=== PATIENT | female | born 1930 | race American Indian/Alaskan Native ===

== ENCOUNTER 2017-02-04 15:54 | Outpatient (CLI) | payer MEDICARE ==
[2017-02-04 17:02] LABS: Alanine Aminotransferase 9 units/L (7-56); Albumin 3.6 g/dL (3.9-5); Albumin/Globulin Ratio 1.1 %; Alkaline Phosphatase 89 units/L (35-129); Anion Gap 14 mmol/L; Bilirubin,Total 0.3 mg/dL (0.1-1.2); Blood Urea Nitrogen 37 mg/dL (7-17); Calcium 9.7 mg/dL (8.4-10.2); Carbon Dioxide 27 mmol/L (22-30); Chloride 103.8 mmol/L (98-107); Glucose 110 mg/dL (65-100); Potassium 4.9 mmol/L (3.6-5.0); Sodium 140 mmol/L (137-145)
== END 2017-02-04 15:55 | disposition home or self-care (01) ==
LOC: MRI 15:54
PROVIDERS: ATTEND Otolaryngology
DX: H93.11 Tinnitus, right ear (principal); H90.5 Unspecified sensorineural hearing loss
CPT/HCPCS: 36415; 80053

== ENCOUNTER 2017-02-23 21:30 | Emergency (ER) | payer MEDICARE ==
[2017-02-23] MEDS ORDERED: ATROVENT IH ONE (22:20)
[2017-02-23] MEDS ORDERED: PROVENTIL IH ONE (22:20)
--- NOTE | 2017-02-23 22:27 | Emergency Department Report ---
ED Shortness of Breath HPI - General Chief Complaint: Dyspnea/Respdistress Stated Complaint: ANGI Time Seen by Provider: 02/23/17 22:15 Source: patient, family, RN notes reviewed Mode of arrival: Wheelchair Limitations: No Limitations - History of Present Illness Initial Comments: 86-year-old female presents to the emergency department complaining of difficulty breathing. Patient reports the acute onset of difficulty breathing this afternoon at approximately 3 PM. Patient denies chest pain, cough, or fever. She reports shortness of breath is worse with exertion. Patient reports a history of asthma, but states she has not had any problems in many years. Patient initially had an O2 saturation of 88% on room air on arrival. Patient was placed on 2 L nasal cannula prior to my arrival with resulting normal oxygen saturation. She reports feeling slightly with oxygen. There are no other complaints. MD Complaint: shortness of breath -: Sudden, This afternoon Time: 15:00 Pain Scale: 0 Consistency: constant Improves With: nothing Worsens With: exertion Known History Of: asthma Associated Symptoms: denies other symptoms Treatments Prior to Arrival: oxygen - Related Data Home Oxygen Therapy: No Home Medications Medication Instructions Recorded Confirmed Last Taken AtorvaSTATin [Lipitor] 1 tab PO DAILY 02/09/16 02/23/17 02/08/16 Lansoprazole [Prevacid] 30 mg PO DAILY 02/09/16 02/23/17 Unknown NIFEdipine 1 tab PO TID 02/09/16 02/23/17 02/09/16 Ranitidine HCl [Zantac 15mg/ml 75 ml PO BID 02/09/16 02/23/17 Unknown Oral Liq] Vesicare 5 mg PO DAILY 02/09/16 02/23/17 Unknown Previous Rx's Medication Instructions Recorded Last Taken Type Enoxaparin [Lovenox] 70 mg SUB-Q Q12HR #8 syringe 02/12/16 Unknown Rx Warfarin [Coumadin] 5 mg PO QDAY #30 tablet 02/12/16 Unknown Rx Albuterol Sulfate [Ventolin HFA] 2 puff IH Q4H PRN #1 hfa.aer.ad 02/24/17 Unknown Rx predniSONE [Deltasone] 3 tab PO QDAY #15 tab 02/24/17 Unknown Rx Allergies Allergy/AdvReac Type Severity Reaction Status Date / Time No Known Allergies Allergy Verified 02/23/17 21:39 ED Review of Systems ROS: Stated complaint: ANGI Other details as noted in HPI Comment: All other systems reviewed and negative Respiratory: shortness of breath, SOB with exertion ED Past Medical Hx - Past Medical History Previous Medical History?: Yes Hx Hypertension: Yes Hx Asthma: Yes Additional medical history: dvt - Surgical History Past Surgical History?: Yes Hx Appendectomy: Yes Additional Surgical History: knee replacement left knee - Family History Family history: no significant - Social History Smoking Status: Never Smoker Substance Use Type: None - Medications Home Medications: Home Medications Medication Instructions Recorded Confirmed Last Taken Type AtorvaSTATin [Lipitor] 1 tab PO DAILY 02/09/16 02/23/17 02/08/16 History Lansoprazole [Prevacid] 30 mg PO DAILY 02/09/16 02/23/17 Unknown History NIFEdipine 1 tab PO TID 02/09/16 02/23/17 02/09/16 History Ranitidine HCl [Zantac 15mg/ml 75 ml PO BID 02/09/16 02/23/17 Unknown History Oral Liq] Vesicare 5 mg PO DAILY 02/09/16 02/23/17 Unknown History Enoxaparin [Lovenox] 70 mg SUB-Q Q12HR #8 syringe 02/12/16 02/23/17 Unknown Rx Warfarin [Coumadin] 5 mg PO QDAY #30 tablet 02/12/16 02/23/17 Unknown Rx Albuterol Sulfate [Ventolin HFA] 2 puff IH Q4H PRN #1 hfa.aer.ad 02/24/17 Unknown Rx predniSONE [Deltasone] 3 tab PO QDAY #15 tab 02/24/17 Unknown Rx ED Physical Exam - General Limitations: No Limitations General appearance: alert, in distress (mild respiratory distress) - Head Head exam: Present: atraumatic, normocephalic - Eye Eye exam: Present: normal appearance, PERRL, EOMI - ENT ENT exam: Present: normal exam, normal orophraynx, mucous membranes moist - Neck Neck exam: Present: normal inspection, full ROM. Absent: tenderness - Respiratory Respiratory exam: Present: respiratory distress (mild tachypnea), wheezes ( faint bilateral posterior expiratory), decreased breath sounds (bilateral diffuse posterior) - Cardiovascular Cardiovascular Exam: Present: regular rate, normal rhythm, normal heart sounds - GI/Abdominal GI/Abdominal exam: Present: soft, normal bowel sounds. Absent: distended, tenderness - Extremities Exam Extremities exam: Present: normal inspection, full ROM. Absent: tenderness - Back Exam Back exam: Present: normal inspection, full ROM. Absent: tenderness - Neurological Exam Neurological exam: Present: alert, oriented X3. Absent: motor sensory deficit - Skin Skin exam: Present: warm, dry, intact ED Course Vital Signs 02/23/17 02/23/17 02/23/17 21:36 22:39 23:15 Temperature 98.2 F Pulse Rate 101 H 80 Pulse Rate [ 94 H Throughout] Respiratory 24 16 Rate Respiratory 20 Rate [ Throughout] Blood Pressure 171/92 Blood Pressure 167/80 [Left] O2 Sat by Pulse 88 97 Oximetry 02/23/17 02/24/17 02/24/17 23:39 00:10 00:20 Temperature Pulse Rate Pulse Rate [ 81 88 90 Throughout] Respiratory Rate Respiratory 20 24 24 Rate [ Throughout] Blood Pressure Blood Pressure [Left] O2 Sat by Pulse Oximetry ED Medical Decision Making - Lab Data Result diagrams: 02/23/17 22:26 02/23/17 22:26 - Radiology Data Radiology results: image reviewed interpreted by me: Chest x-ray shows no acute cardiopulmonary abnormality. - Medical Decision Making Lab and imaging results reviewed and discussed with patient and family. After multiple nebulizer treatments, the patient reported feeling much better. Patient was able to be weaned off of oxygen and maintained room air oxygen saturation greater than 95%. Patient will be discharged home at this time to follow up with her primary care physician. - Differential Diagnosis asthma exacerbation, CHF, ACS Critical care attestation.: If time is entered above; I have spent that time in minutes in the direct care of this critically ill patient, excluding procedure time. ED Disposition Clinical Impression: Asthma exacerbation Disposition: DISCHARGED TO HOME OR SELFCARE Is pt being admited?: No Condition: Stable Instructions: Asthma (ED) Prescriptions: Albuterol Sulfate [Ventolin HFA] 2 puff IH Q4H PRN #1 hfa.aer.ad PRN Reason: Shortness Of Breath predniSONE [Deltasone] 3 tab PO QDAY #15 tab Referrals: PRIMARY CARE, [Primary Care Provider] - 3-5 Days Time of Disposition: 01:03
[2017-02-23 22:51] LABS: Basophils % (Auto) 0.3 % (0.0-1.8); Eosinophils % (Auto) 3.4 % (0.0-4.3); Hematocrit 40.2 % (30.3-42.9); Hemoglobin 12.8 gm/dl (10.1-14.3); Mean Corpuscular HGB Conc 32 % (30-34); Mean Corpuscular Hemoglobin 28 pg (28-32); Mean Corpuscular Volume 87 fl (79-97); Platelet Count 170 K/mm3 (140-440); Red Cell Distribution Width 16.6 % (13.2-15.2); White Blood Count 4.5 K/mm3 (4.5-11.0)
[2017-02-23 22:59] LABS: Anion Gap 17 mmol/L; Blood Urea Nitrogen 24 mg/dL (7-17); Calcium 9.8 mg/dL (8.4-10.2); Carbon Dioxide 26 mmol/L (22-30); Chloride 106.8 mmol/L (98-107); Glucose 98 mg/dL (65-100); Potassium 4.4 mmol/L (3.6-5.0); Sodium 145 mmol/L (137-145)
[2017-02-23 23:17] VITALS: BP 167/80
[2017-02-23] MEDS ORDERED: DUONEB 0.5 MG-3 MG/3 ML SOLN IH ONE (23:51)
--- NOTE | 2017-02-24 09:04 | XRay Report ---
AP CHEST: HISTORY: Dyspnea AP view of the chest demonstrates a normal mediastinal and cardiac contour with clear lungs and normal bony and soft tissue structures. IMPRESSION: No acute cardiopulmonary process identified.
== END 2017-02-24 01:12 | disposition home or self-care (01) ==
LOC: ED 21:30
DX: J45.901 Unspecified asthma with (acute) exacerbation (principal); I10 Essential (primary) hypertension; Z86.718 Personal history of other venous thrombosis and embolism
CPT/HCPCS: 36415; 71010; 80048; 83880; 84484; 85025; 94640; 96374; 99284; J2930

== ENCOUNTER 2018-10-12 10:04 | Outpatient (CLI) | payer MEDICARE, OTHER ==
[2018-10-12] MEDS ORDERED: XYLOCAINE TOPICAL 4% TP ONE (11:12)
== END 2018-10-12 10:05 | disposition home or self-care (01) ==
LOC: WOUND 10:04
PROVIDERS: ATTEND Surgery
DX: L97.812 Non-pressure chronic ulcer of other part of right lower leg with fat layer exposed (principal); I87.2 Venous insufficiency (chronic) (peripheral); J45.909 Unspecified asthma, uncomplicated; E78.00 Pure hypercholesterolemia, unspecified; I10 Essential (primary) hypertension; Z96.659 Presence of unspecified artificial knee joint
CPT/HCPCS: 99215; G0463

== ENCOUNTER 2018-10-26 09:50 | Outpatient (CLI) | payer MEDICARE, OTHER ==
[2018-10-26] MEDS ORDERED: XYLOCAINE TOPICAL 4% TP ONE (10:07)
[2018-10-26] MEDS ORDERED: AD OINTMENT TP PRN (10:07)
== END 2018-10-26 09:51 | disposition home or self-care (01) ==
LOC: WOUND 09:50
PROVIDERS: ATTEND Surgery
DX: L97.812 Non-pressure chronic ulcer of other part of right lower leg with fat layer exposed (principal); I87.8 Other specified disorders of veins; I10 Essential (primary) hypertension; E78.00 Pure hypercholesterolemia, unspecified; J45.909 Unspecified asthma, uncomplicated; E78.5 Hyperlipidemia, unspecified; Z86.718 Personal history of other venous thrombosis and embolism; Z96.659 Presence of unspecified artificial knee joint
CPT/HCPCS: A6250

== ENCOUNTER 2018-11-09 09:52 | Outpatient (CLI) | payer MEDICARE, OTHER | END 2018-11-09 09:53 | disposition home or self-care (01) | LOC: WOUND 09:52 ==

== ENCOUNTER 2018-11-16 09:58 | Outpatient (CLI) | payer MEDICARE, OTHER | END 2018-11-16 09:59 | disposition home or self-care (01) | LOC: WOUND 09:58 ==

== ENCOUNTER 2018-11-30 09:53 | Outpatient (CLI) | payer MEDICARE, OTHER | END 2018-11-30 09:54 | disposition home or self-care (01) | LOC: WOUND 09:53 ==

== ENCOUNTER 2018-12-07 09:46 | Outpatient (CLI) | payer MEDICARE, OTHER ==
[2018-12-07] MEDS ORDERED: AD OINTMENT TP PRN (10:30)
[2018-12-07] MEDS ORDERED: XYLOCAINE TOPICAL 4% TP ONE (11:20)
== END 2018-12-07 09:47 | disposition home or self-care (01) ==
LOC: WOUND 09:46
PROVIDERS: ATTEND Surgery
DX: I70.232 Atherosclerosis of native arteries of right leg with ulceration of calf (principal); L97.212 Non-pressure chronic ulcer of right calf with fat layer exposed; I87.8 Other specified disorders of veins; I10 Essential (primary) hypertension; J45.909 Unspecified asthma, uncomplicated; E78.5 Hyperlipidemia, unspecified; E78.00 Pure hypercholesterolemia, unspecified; Z96.659 Presence of unspecified artificial knee joint; Z86.718 Personal history of other venous thrombosis and embolism
CPT/HCPCS: A6250

== ENCOUNTER 2018-12-28 09:58 | Outpatient (CLI) | payer MEDICARE, OTHER | END 2018-12-28 09:59 | disposition home or self-care (01) | LOC: WOUND 09:58 ==

== ENCOUNTER 2019-01-04 09:53 | Outpatient (CLI) | payer MEDICARE, OTHER ==
[2019-01-04] MEDS ORDERED: XYLOCAINE TOPICAL 4% TP ONE (11:11)
== END 2019-01-04 09:54 | disposition home or self-care (01) ==
LOC: WOUND 09:53
PROVIDERS: ATTEND Surgery
DX: I70.232 Atherosclerosis of native arteries of right leg with ulceration of calf (principal); L97.212 Non-pressure chronic ulcer of right calf with fat layer exposed; I10 Essential (primary) hypertension; E78.00 Pure hypercholesterolemia, unspecified; E78.5 Hyperlipidemia, unspecified; J45.909 Unspecified asthma, uncomplicated; Z96.659 Presence of unspecified artificial knee joint; Z86.718 Personal history of other venous thrombosis and embolism

== ENCOUNTER 2019-01-25 10:01 | Outpatient (CLI) | payer MEDICARE, OTHER ==
[2019-01-25] MEDS ORDERED: XYLOCAINE TOPICAL 4% TP ONE (10:30)
[2019-01-25] MEDS ORDERED: AD OINTMENT TP PRN (10:30)
== END 2019-01-25 10:02 | disposition home or self-care (01) ==
LOC: WOUND 10:01
PROVIDERS: ATTEND Surgery
DX: I70.232 Atherosclerosis of native arteries of right leg with ulceration of calf (principal); L97.212 Non-pressure chronic ulcer of right calf with fat layer exposed; I87.8 Other specified disorders of veins; I10 Essential (primary) hypertension; E78.00 Pure hypercholesterolemia, unspecified; J45.909 Unspecified asthma, uncomplicated; E78.5 Hyperlipidemia, unspecified; Z86.718 Personal history of other venous thrombosis and embolism; Z96.659 Presence of unspecified artificial knee joint
CPT/HCPCS: A6250

== ENCOUNTER 2019-02-22 09:29 | Outpatient (CLI) | payer MEDICARE, OTHER ==
[2019-02-22] MEDS ORDERED: XYLOCAINE TOPICAL 4% TP ONE (10:00)
== END 2019-02-22 09:30 | disposition home or self-care (01) ==
LOC: WOUND 09:29
PROVIDERS: ATTEND Surgery
DX: I70.232 Atherosclerosis of native arteries of right leg with ulceration of calf (principal); L97.812 Non-pressure chronic ulcer of other part of right lower leg with fat layer exposed; I87.8 Other specified disorders of veins; I10 Essential (primary) hypertension; J45.909 Unspecified asthma, uncomplicated; E78.5 Hyperlipidemia, unspecified; E78.00 Pure hypercholesterolemia, unspecified; Z86.718 Personal history of other venous thrombosis and embolism; Z96.60 Presence of unspecified orthopedic joint implant

== ENCOUNTER 2019-03-01 09:33 | Outpatient (CLI) | payer MEDICARE, OTHER ==
[2019-03-01] MEDS ORDERED: AD OINTMENT TP SCH (10:00)
[2019-03-01] MEDS ORDERED: XYLOCAINE TOPICAL 4% TP ONE (10:00)
== END 2019-03-01 09:34 | disposition home or self-care (01) ==
LOC: WOUND 09:33
PROVIDERS: ATTEND Surgery
DX: I70.232 Atherosclerosis of native arteries of right leg with ulceration of calf (principal); L97.212 Non-pressure chronic ulcer of right calf with fat layer exposed; I87.8 Other specified disorders of veins; I10 Essential (primary) hypertension; J45.909 Unspecified asthma, uncomplicated; E78.5 Hyperlipidemia, unspecified; E78.00 Pure hypercholesterolemia, unspecified; Z86.718 Personal history of other venous thrombosis and embolism; Z96.60 Presence of unspecified orthopedic joint implant
CPT/HCPCS: A6250

== ENCOUNTER 2019-03-29 09:36 | Outpatient (CLI) | payer MEDICARE, OTHER ==
[2019-03-29] MEDS ORDERED: XYLOCAINE TOPICAL 4% TP ONE (10:00)
[2019-03-29] MEDS ORDERED: AD OINTMENT TP PRN (10:00)
[2019-03-29] MEDS ORDERED: SILVER NITRATE TP ONE (10:00)
== END 2019-03-29 09:37 | disposition home or self-care (01) ==
LOC: WOUND 09:36
PROVIDERS: ATTEND Surgery
DX: I70.232 Atherosclerosis of native arteries of right leg with ulceration of calf (principal); L97.212 Non-pressure chronic ulcer of right calf with fat layer exposed; I87.8 Other specified disorders of veins; I10 Essential (primary) hypertension; E78.00 Pure hypercholesterolemia, unspecified; J45.909 Unspecified asthma, uncomplicated; Z86.718 Personal history of other venous thrombosis and embolism; Z96.659 Presence of unspecified artificial knee joint
CPT/HCPCS: A6250

== ENCOUNTER 2019-04-07 09:35 | Outpatient (CLI) | payer MEDICARE, OTHER | END 2019-04-07 09:36 | disposition home or self-care (01) | LOC: WOUND 09:35 | PROVIDERS: ATTEND Surgery | DX: I70.232 Atherosclerosis of native arteries of right leg with ulceration of calf (principal); L97.812 Non-pressure chronic ulcer of other part of right lower leg with fat layer exposed; I87.8 Other specified disorders of veins; I10 Essential (primary) hypertension; E78.00 Pure hypercholesterolemia, unspecified; J45.909 Unspecified asthma, uncomplicated; Z86.718 Personal history of other venous thrombosis and embolism; Z96.659 Presence of unspecified artificial knee joint ==

== ENCOUNTER 2019-04-19 09:24 | Outpatient (CLI) | payer MEDICARE, OTHER ==
[2019-04-19] MEDS ORDERED: XYLOCAINE TOPICAL 4% TP ONE (10:00)
== END 2019-04-19 09:25 | disposition home or self-care (01) ==
LOC: WOUND 09:24
PROVIDERS: ATTEND Surgery
DX: I70.232 Atherosclerosis of native arteries of right leg with ulceration of calf (principal); L97.812 Non-pressure chronic ulcer of other part of right lower leg with fat layer exposed; I87.8 Other specified disorders of veins; I10 Essential (primary) hypertension; E78.00 Pure hypercholesterolemia, unspecified; J45.909 Unspecified asthma, uncomplicated; Z86.718 Personal history of other venous thrombosis and embolism; Z96.659 Presence of unspecified artificial knee joint

== ENCOUNTER 2019-05-17 09:25 | Outpatient (CLI) | payer MEDICARE, OTHER ==
[2019-05-17] MEDS ORDERED: XYLOCAINE TOPICAL 4% TP ONE (10:30)
[2019-05-17] MEDS ORDERED: AD OINTMENT TP PRN (10:30)
== END 2019-05-17 09:26 | disposition home or self-care (01) ==
LOC: WOUND 09:25
PROVIDERS: ATTEND Surgery
DX: L97.812 Non-pressure chronic ulcer of other part of right lower leg with fat layer exposed (principal); I87.2 Venous insufficiency (chronic) (peripheral); E78.00 Pure hypercholesterolemia, unspecified; J45.909 Unspecified asthma, uncomplicated; I10 Essential (primary) hypertension; Z96.659 Presence of unspecified artificial knee joint
CPT/HCPCS: A6250

== ENCOUNTER 2019-05-20 11:39 | Outpatient (CLI) | payer MEDICARE, OTHER | END 2019-05-20 11:40 | disposition home or self-care (01) | LOC: WOUND 11:39 | PROVIDERS: ATTEND Surgery | DX: I70.232 Atherosclerosis of native arteries of right leg with ulceration of calf (principal); L97.812 Non-pressure chronic ulcer of other part of right lower leg with fat layer exposed; I87.8 Other specified disorders of veins; I10 Essential (primary) hypertension; E78.00 Pure hypercholesterolemia, unspecified; J45.909 Unspecified asthma, uncomplicated; Z86.718 Personal history of other venous thrombosis and embolism; Z96.659 Presence of unspecified artificial knee joint | CPT/HCPCS: 29581 ==

== ENCOUNTER 2019-05-24 09:31 | Outpatient (CLI) | payer MEDICARE, OTHER ==
[2019-05-24] MEDS ORDERED: AD OINTMENT TP SCH (11:00)
[2019-05-24] MEDS ORDERED: XYLOCAINE TOPICAL 4% TP ONE (11:04)
== END 2019-05-24 09:32 | disposition home or self-care (01) ==
LOC: WOUND 09:31
PROVIDERS: ATTEND Surgery
DX: L97.812 Non-pressure chronic ulcer of other part of right lower leg with fat layer exposed (principal); I87.2 Venous insufficiency (chronic) (peripheral); E78.00 Pure hypercholesterolemia, unspecified; I10 Essential (primary) hypertension; J45.909 Unspecified asthma, uncomplicated; Z96.659 Presence of unspecified artificial knee joint
CPT/HCPCS: A6250

== ENCOUNTER 2019-05-31 09:35 | Outpatient (CLI) | payer MEDICARE, OTHER ==
[2019-05-31] MEDS ORDERED: XYLOCAINE TOPICAL 4% TP ONE (10:00)
[2019-05-31] MEDS ORDERED: AD OINTMENT TP PRN (10:30)
== END 2019-05-31 09:36 | disposition home or self-care (01) ==
LOC: WOUND 09:35
PROVIDERS: ATTEND Surgery
DX: L97.812 Non-pressure chronic ulcer of other part of right lower leg with fat layer exposed (principal); I87.2 Venous insufficiency (chronic) (peripheral); E78.00 Pure hypercholesterolemia, unspecified; J45.909 Unspecified asthma, uncomplicated; I10 Essential (primary) hypertension; Z96.659 Presence of unspecified artificial knee joint
CPT/HCPCS: A6250

== ENCOUNTER 2019-06-07 09:26 | Outpatient (CLI) | payer MEDICARE, OTHER | END 2019-06-07 09:27 | disposition home or self-care (01) | LOC: WOUND 09:26 | PROVIDERS: ATTEND Surgery | DX: L97.812 Non-pressure chronic ulcer of other part of right lower leg with fat layer exposed (principal); I87.2 Venous insufficiency (chronic) (peripheral); E78.00 Pure hypercholesterolemia, unspecified; I10 Essential (primary) hypertension; J45.909 Unspecified asthma, uncomplicated; E78.5 Hyperlipidemia, unspecified; Z96.659 Presence of unspecified artificial knee joint; Z86.718 Personal history of other venous thrombosis and embolism ==

== ENCOUNTER 2019-06-14 09:20 | Outpatient (CLI) | payer MEDICARE, OTHER ==
[2019-06-14] MEDS ORDERED: XYLOCAINE TOPICAL 4% TP ONE (10:00)
== END 2019-06-14 09:21 | disposition home or self-care (01) ==
LOC: WOUND 09:20
PROVIDERS: ATTEND Surgery
DX: L97.812 Non-pressure chronic ulcer of other part of right lower leg with fat layer exposed (principal); I87.2 Venous insufficiency (chronic) (peripheral); E78.00 Pure hypercholesterolemia, unspecified; I10 Essential (primary) hypertension; J45.909 Unspecified asthma, uncomplicated; E78.5 Hyperlipidemia, unspecified; Z96.659 Presence of unspecified artificial knee joint; Z86.718 Personal history of other venous thrombosis and embolism

== ENCOUNTER 2019-11-11 14:23 | Emergency (ER) | payer MEDICARE, OTHER ==
--- NOTE | 2019-11-11 14:35 | Emergency Department Report ---
Blank Doc - Documentation Documentation: 89-year-old female that presents with open wound that is drainage and swelling. This initial assessment/diagnostic orders/clinical plan/treatment(s) is/are subject to change based on patient's health status, clinical progression and re- assessment by fellow clinical providers in the ED. Further treatment and workup at subsequent clinical providers discretion. Patient/guardians urged not to elope from the ED as their condition may be serious if not clinically assessed and managed. Initial orders include: 1- Patient sent to [facility] for further evaluation and treatment
[2019-11-11 15:10] LABS: Basophils % (Auto) 0.3 % (0.0-1.8); Eosinophils # (Auto) 0.1 K/mm3 (0.0-0.4); Eosinophils % (Auto) 1.4 % (0.0-4.3); Hematocrit 36.8 % (30.3-42.9); Hemoglobin 11.9 gm/dl (10.1-14.3); Lymphocytes % (Auto) 17.2 % (13.4-35.0); Mean Corpuscular HGB Conc 32 % (30-34); Mean Corpuscular Volume 85 fl (79-97); Monocytes # (Auto) 0.6 K/mm3 (0.0-0.8); Monocytes % (Auto) 9.9 % (0.0-7.3); Platelet Count 247 K/mm3 (140-440); Red Blood Count 4.35 M/mm3 (3.65-5.03); Red Cell Distribution Width 15.8 % (13.2-15.2)
[2019-11-11 15:26] LABS: Calcium 10.1 mg/dL (8.4-10.2)
--- NOTE | 2019-11-11 18:48 | Emergency Department Report ---
- General Chief Complaint: Extremity Injury, Lower Stated Complaint: RT LEG WOUND Time Seen by Provider: 11/11/19 14:33 Source: patient Mode of arrival: Ambulatory Limitations: No Limitations - History of Present Illness Initial Comments: 89-year-old -Portuguese female presents to the emergency room complaining of pain to the left lower lid due to a wound. Patient reports that she's had this wound on her leg for at least 1 year. Patient reports she's been following up at the Wound Care clinic. Patient states that she went to the wound care clinic and they treated her and now she is having pain. Patient reports that she uses takes tramadol but last dose was early this morning. Patient also complains of itchy red rash to thighs for several days. Patient cannot recall the offending agent. Patient does have a past medical history of hypertension and peripheral vascular disease. Patient's primary care doctor is Dr. Nguyen. Onset/Timin -: year(s) Extremity Location: Left: Lower Leg Patient Tetanus UTD: Yes Associated Symptoms: pain - Related Data Home Medications Medication Instructions Recorded Confirmed Last Taken AtorvaSTATin [Lipitor] 1 tab PO DAILY 02/09/16 02/23/17 02/08/16 Lansoprazole [Prevacid] 30 mg PO DAILY 02/09/16 02/23/17 Unknown NIFEdipine 1 tab PO TID 02/09/16 02/23/17 02/09/16 Vesicare 5 mg PO DAILY 02/09/16 02/23/17 Unknown raNITIdine HCl [Zantac 15mg/ml 75 ml PO BID 02/09/16 02/23/17 Unknown Oral Liq] Previous Rx's Medication Instructions Recorded Last Taken Type Enoxaparin 70 mg SUB-Q Q12HR #8 syringe 02/12/16 Unknown Rx Warfarin [Coumadin] 5 mg PO QDAY #30 tablet 02/12/16 Unknown Rx Albuterol Sulfate [Ventolin HFA] 2 puff IH Q4H PRN #1 hfa.aer.ad 02/24/17 Unknown Rx predniSONE [Deltasone] 3 tab PO QDAY #15 tab 02/24/17 Unknown Rx Albuterol INH(or & Nicu Only) 2 puff IH Q4HR PRN #1 inhalation 08/25/18 Unknown Rx [ProAir HFA Inhaler] predniSONE [Deltasone] 20 mg PO QDAY #15 tab 08/25/18 Unknown Rx Triamcinolone 0.1% [Kenalog 0.1% 1 applic TP TID #1 tube 11/11/19 Unknown Rx CREAM] Allergies Allergy/AdvReac Type Severity Reaction Status Date / Time No Known Allergies Allergy Verified 02/23/17 21:39 ED Review of Systems ROS: Stated complaint: RT LEG WOUND Other details as noted in HPI Comment: All other systems reviewed and negative ED Past Medical Hx - Past Medical History Hx Hypertension: Yes Hx Asthma: Yes Additional medical history: dvt - Surgical History Hx Appendectomy: Yes Additional Surgical History: knee replacement left knee - Social History Smoking Status: Never Smoker Substance Use Type: None - Medications Home Medications: Home Medications Medication Instructions Recorded Confirmed Last Taken Type AtorvaSTATin [Lipitor] 1 tab PO DAILY 02/09/16 02/23/17 02/08/16 History Lansoprazole [Prevacid] 30 mg PO DAILY 02/09/16 02/23/17 Unknown History NIFEdipine 1 tab PO TID 02/09/16 02/23/17 02/09/16 History Vesicare 5 mg PO DAILY 02/09/16 02/23/17 Unknown History raNITIdine HCl [Zantac 15mg/ml 75 ml PO BID 02/09/16 02/23/17 Unknown History Oral Liq] Enoxaparin 70 mg SUB-Q Q12HR #8 syringe 02/12/16 02/23/17 Unknown Rx Warfarin [Coumadin] 5 mg PO QDAY #30 tablet 02/12/16 02/23/17 Unknown Rx Albuterol Sulfate [Ventolin HFA] 2 puff IH Q4H PRN #1 hfa.aer.ad 02/24/17 Unknown Rx predniSONE [Deltasone] 3 tab PO QDAY #15 tab 02/24/17 Unknown Rx Albuterol INH(or & Nicu Only) 2 puff IH Q4HR PRN #1 inhalation 08/25/18 Unknown Rx [ProAir HFA Inhaler] predniSONE [Deltasone] 20 mg PO QDAY #15 tab 08/25/18 Unknown Rx Triamcinolone 0.1% [Kenalog 0.1% 1 applic TP TID #1 tube 11/11/19 Unknown Rx CREAM] ED Physical Exam - General Limitations: No Limitations General appearance: alert, in no apparent distress - Head Head exam: Present: atraumatic, normocephalic - Eye Eye exam: Present: normal appearance - ENT ENT exam: Present: mucous membranes moist - Neurological Exam Neurological exam: Present: alert, oriented X3 - Psychiatric Psychiatric exam: Present: normal affect, normal mood - Expanded Skin Exam Expanded Type of lesion: Present: rash, other (wound right lower leg : Hyperpigmented thick scaly skin with an area distal that is hypopigmented open wound with no purulent discharge or foul odor. Patient has clear discharge from wound) Distribution of rash: RLE, LLE Description of rash: Present: erythematous, papular. Absent: swelling ED Course Vital Signs 11/11/19 14:34 Temperature 98 F Pulse Rate 90 Respiratory 16 Rate Blood Pressure 109/65 O2 Sat by Pulse 97 Oximetry ED Medical Decision Making - Lab Data Result diagrams: 11/11/19 14:47 11/11/19 14:47 - Medical Decision Making 89-year-old -Portuguese female presents to the emergency room complaining of pain to the left lower lid due to a wound. Patient reports that she's had this wound on her leg for at least 1 year. Patient reports she's been following up at the Wound Care clinic. Patient states that she went to the wound care clinic and they treated her and now she is having pain. Patient reports that she uses takes tramadol but last dose was early this morning. Patient does have a past medical history of hypertension and peripheral vascular disease. Patient's primary care doctor is Dr. Nguyen. And has 2 different complaints. #1 patient has a chronic peripheral vascular disease secondary wound that appears noninfectious. Discussed the patient will refer her to another wound care clinic and she is not please with the Wound Care clinic she is currently going to. I also discussed the patient that when the provider manipulates her wound such as cleaning her debridement that she is going to have some pain and that she needs to take her pain medication. Liliana salazar's wound was cleaned and redressed by nursing staff. In complaint patient has a rash that appears to be a contact dermatitis. Patient was placed on triamcinolone cream to only apply to her rash on her upper thighs. Critical care attestation.: If time is entered above; I have spent that time in minutes in the direct care of this critically ill patient, excluding procedure time. ED Disposition Clinical Impression: Contact dermatitis Qualifiers: Contact dermatitis type: unspecified Contact dermatitis trigger: unspecified trigger Qualified Code(s): L25.9 - Unspecified contact dermatitis, unspecified cause Open leg wound Qualifiers: Encounter type: subsequent encounter Laterality: right Qualified Code(s): S81.801D - Unspecified open wound, right lower leg, subsequent encounter Disposition: DC-01 TO HOME OR SELFCARE Is pt being admited?: No Does the pt Need Aspirin: No Condition: Stable Instructions: Contact Dermatitis (ED) Additional Instructions: Take pain medication as prescribed. Primary care provider. Follow up at the wound care clinic and have listed [facility] in [place]. Use cream on your upper thigh where rash is located. Do not place on the wound. Prescriptions: Triamcinolone 0.1% [Kenalog 0.1% CREAM] 1 applic TP TID #1 tube Referrals: PRIMARY CARE, [Primary Care Provider] - 3-5 Days Wound[facility]Care Clinic [Other] - 3-5 Days
[2019-11-11 19:11] VITALS: BP 128/81
== END 2019-11-11 19:12 | disposition home or self-care (01) ==
LOC: ED 14:23
DX: S81.802D Unspecified open wound, left lower leg, subsequent encounter (principal); L25.9 Unspecified contact dermatitis, unspecified cause; I10 Essential (primary) hypertension; J45.909 Unspecified asthma, uncomplicated; Z79.899 Other long term (current) drug therapy; X58.XXXD Exposure to other specified factors, subsequent encounter
CPT/HCPCS: 36415; 80048; 85025

== ENCOUNTER 2019-11-22 08:52 | Emergency (ER) | payer MEDICARE, OTHER ==
--- NOTE | 2019-11-22 09:32 | Emergency Department Report ---
ED Extremity Problem HPI - General Chief complaint: Wound/Laceration Stated complaint: OPEN WOUND RIGHT FOOT Time Seen by Provider: 11/22/19 09:20 Source: patient, EMS Mode of arrival: Stretcher Limitations: Physical Limitation - History of Present Illness Initial comments: Patient is a 89 years old female with history of hypertension, asthma and periph eral vascular disease. Patient also had a chronic right leg wound for approximately one year. Patient presented to the ER stating that since last night her right leg is hurting her more. Patient stated that she is unable to sleep last night because of the pain. Patient stated that she is taking tramadol but is not helping. Patient denied any recent injury or fall. Patient also denied any fever or chills. No chest pain or shortness of breath or abdominal pain. MD Complaint: extremity pain, extremity swelling - Related Data Home Medications Medication Instructions Recorded Confirmed Last Taken AtorvaSTATin [Lipitor] 1 tab PO DAILY 02/09/16 02/23/17 02/08/16 Lansoprazole [Prevacid] 30 mg PO DAILY 02/09/16 02/23/17 Unknown NIFEdipine 1 tab PO TID 02/09/16 02/23/17 02/09/16 Vesicare 5 mg PO DAILY 02/09/16 02/23/17 Unknown raNITIdine HCl [Zantac 15mg/ml 75 ml PO BID 02/09/16 02/23/17 Unknown Oral Liq] Previous Rx's Medication Instructions Recorded Last Taken Type Enoxaparin 70 mg SUB-Q Q12HR #8 syringe 02/12/16 Unknown Rx Warfarin [Coumadin] 5 mg PO QDAY #30 tablet 02/12/16 Unknown Rx Albuterol Sulfate [Ventolin HFA] 2 puff IH Q4H PRN #1 hfa.aer.ad 02/24/17 Unknow n Rx predniSONE [Deltasone] 3 tab PO QDAY #15 tab 02/24/17 Unknown Rx Albuterol INH(or & Nicu Only) 2 puff IH Q4HR PRN #1 inhalation 08/25/18 Unknown Rx [ProAir HFA Inhaler] predniSONE [Deltasone] 20 mg PO QDAY #15 tab 08/25/18 Unknown Rx Triamcinolone 0.1% [Kenalog 0.1% 1 applic TP TID #1 tube 11/11/19 Unknown Rx CREAM] Allergies Allergy/AdvReac Type Severity Reaction Status Date / Time No Known Allergies Allergy Verified 02/23/17 21:39 ED Review of Systems ROS: Stated complaint: OPEN WOUND RIGHT FOOT Other details as noted in HPI Comment: All other systems reviewed and negative Constitutional: denies: chills, fever Respiratory: denies: cough, shortness of breath, SOB with exertion Cardiovascular: denies: chest pain, palpitations Gastrointestinal: denies: abdominal pain, nausea, vomiting Musculoskeletal: denies: back pain Neurological: denies: headache, weakness, numbness, paresthesias, confusion, abnormal gait ED Past Medical Hx - Past Medical History Hx Hypertension: Yes Hx Asthma: Yes Additional medical history: dvt - Surgical History Hx Appendectomy: Yes Additional Surgical History: knee replacement left knee - Social History Smoking Status: Never Smoker Substance Use Type: None - Medications Home Medications: Home Medications Medication Instructions Recorded Confirmed Last Taken Type AtorvaSTATin [Lipitor] 1 tab PO DAILY 02/09/16 02/23/17 02/08/16 History Lansoprazole [Prevacid] 30 mg PO DAILY 02/09/16 02/23/17 Unknown History NIFEdipine 1 tab PO TID 02/09/16 02/23/17 02/09/16 History Vesicare 5 mg PO DAILY 02/09/16 02/23/17 Unknown History raNITIdine HCl [Zantac 15mg/ml 75 ml PO BID 02/09/16 02/23/17 Unknown History Oral Liq] Enoxaparin 70 mg SUB-Q Q12HR #8 syringe 02/12/16 02/23/17 Unknown Rx Warfarin [Coumadin] 5 mg PO QDAY #30 tablet 02/12/16 02/23/17 Unknown Rx Albuterol Sulfate [Ventolin HFA] 2 puff IH Q4H PRN #1 hfa.aer.ad 02/24/17 Unknown Rx predniSONE [Deltasone] 3 tab PO QDAY #15 tab 02/24/17 Unknown Rx Albuterol INH(or & Nicu Only) 2 puff IH Q4HR PRN #1 inhalation 08/25/18 Unknown Rx [ProAir HFA Inhaler] predniSONE [Deltasone] 20 mg PO QDAY #15 tab 08/25/18 Unknown Rx Triamcinolone 0.1% [Kenalog 0.1% 1 applic TP TID #1 tube 11/11/19 Unknown Rx CREAM] ED Physical Exam - General Limitations: Physical Limitation General appearance: alert, in no apparent distress - Head Head exam: Present: atraumatic, normocephalic, normal inspection - Eye Eye exam: Present: normal appearance - ENT ENT exam: Present: normal exam, normal orophraynx, mucous membranes moist - Neck Neck exam: Present: normal inspection. Absent: tenderness, meningismus - Respiratory Respiratory exam: Present: normal lung sounds bilaterally - Cardiovascular Cardiovascular Exam: Present: regular rate, normal rhythm, normal heart sounds - GI/Abdominal GI/Abdominal exam: Present: soft, normal bowel sounds. Absent: distended, tenderness, rebound, rigid, mass, bruit, pulsatile mass - Extremities Exam Extremities exam: Absent: calf tenderness - Expanded Lower Extremity Exam Right Lower Leg exam: Present: tenderness, swelling, erythema Neuro vascular tendon exam: Present: pulse deficit - Back Exam Back exam: Present: normal inspection, full ROM. Absent: CVA tenderness (R), CVA tenderness (L) - Neurological Exam Neurological exam: Present: alert, oriented X3, CN II-XII intact, reflexes normal - Psychiatric Psychiatric exam: Present: normal mood - Skin Skin exam: Present: warm ED Course Vital Signs 11/22/19 11/22/19 11/22/19 09:22 09:28 12:05 Temperature 98.2 F Pulse Rate 85 86 Respiratory 18 Rate Blood Pressure 130/80 Blood Pressure 136/86 [Left] O2 Sat by Pulse 97 98 Oximetry 11/22/19 14:38 Temperature Pulse Rate 78 Respiratory 18 Rate Blood Pressure Blood Pressure 128/78 [Left] O2 Sat by Pulse 98 Oximetry ED Medical Decision Making - Lab Data Result diagrams: 11/22/19 09:41 11/22/19 09:41 - Radiology Data Radiology results: report reviewed - Medical Decision Making Patient is a 89 years old female with history of hypertension, asthma and peripheral vascular disease. Patient also had a chronic right leg wound for approximately one year. Patient presented to the ER stating that since last night her right leg is hurting her more. Patient stated that she is unable to sleep last night because of the pain. Patient stated that she is taking trama dol but is not helping. Patient denied any recent injury or fall. Patient also denied any fever or chills. No chest pain or shortness of breath or abdominal pain. Labs reviewed and is unremarkable except for slightly elevated APTT. CTA of lower extremities show no evidence of acute stenosis. Patient advised to follow up with her wound care clinic and to return to the ER if she developed any new symptoms. Critical care attestation.: If time is entered above; I have spent that time in minutes in the direct care of this critically ill patient, excluding procedure time. ED Disposition Clinical Impression: Right leg pain, Peripheral vascular disease Disposition: TO HOME OR SELFCARE Is pt being admited?: No Condition: Stable Instructions: Peripheral Vascular Disorders (ED) Referrals: PRIMARY CARE, [Primary Care Provider] - 3-5 Days
[2019-11-22 09:55] LABS: Basophils % (Auto) 0.2 % (0.0-1.8); Eosinophils # (Auto) 0.1 K/mm3 (0.0-0.4); Eosinophils % (Auto) 1.2 % (0.0-4.3); Hematocrit 33.8 % (30.3-42.9); Hemoglobin 10.9 gm/dl (10.1-14.3); Lymphocytes # (Auto) 0.8 K/mm3 (1.2-5.4); Lymphocytes % (Auto) 13.5 % (13.4-35.0); Mean Corpuscular HGB Conc 32 % (30-34); Mean Corpuscular Volume 84 fl (79-97); Monocytes # (Auto) 0.6 K/mm3 (0.0-0.8); Monocytes % (Auto) 10.4 % (0.0-7.3); Platelet Count 221 K/mm3 (140-440); Red Blood Count 4.04 M/mm3 (3.65-5.03); Red Cell Distribution Width 15.4 % (13.2-15.2)
[2019-11-22 10:05] LABS: INR 2.51 (0.87-1.13)
[2019-11-22 10:15] LABS: Partial Thromboplastin Time 63.4 Sec. (24.2-36.6)
[2019-11-22 10:17] LABS: Calcium 9.7 mg/dL (8.4-10.2)
--- NOTE | 2019-11-22 14:37 | Cat Scan Report ---
CTA abdomen and pelvis with contrast INDICATION : right leg pain and diminished pulses. TECHNIQUE: Axial imaging performed through the abdomen and pelvis, with contrast bolus timing set to maximize opacification of the aorta. Bilateral lower extremity runoff was also performed. 3-plane M IP reformatted images were obtained. All CT scans at this location are performed using CT dose reduc tion for ALARA by means of automated exposure control. 125 mL of intravenous contrast administered. COMPARISON: CT abdomen/pelvis from 05/10/2016 FINDINGS: Angiographic findings: Contrast bolus timing is adequate. There is mild atherosclerotic disease withi n the abdominal aorta and major branch vessels. There is a kinked appearance of the celiac axis with greater than 50% resultant narrowing. Branch anatomy is normal with single bilateral renal arteries. Mild atherosclerotic disease extends into the iliac arteries which are otherwise widely patent except for the left internal iliac artery distally which demonstrates circumferential mural thrombus and sl ight narrowing. In the right lower extremity, there is mild to moderate multifocal atherosclerotic disease especially in the distal SFA and extending into the popliteal artery. There is no stenosis which exceeds grossl y 50% visually. 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 The peroneal artery also becomes occluded just beyond its origin although there are several small collateral vessels which reconstitute this vessel . There is a single runoff to the right foot via the peroneal arteries and small collateral blood ves sels. In the left lower extremity, there is mild to moderate multifocal atherosclerotic disease which is mo st advanced in the distal SFA extending into the popliteal artery. Some of the popliteal artery is no t well seen because of considerable streak artifact from a knee arthroplasty. Less than 50% stenosis is seen visually. The trifurcate arteries are patent but then almost immediately the anterior tibial and posterior tibial arteries become occluded with only the peroneal artery and several small collate ral vessels extending into the foot with a single vessel runoff. Non-angiographic findings: Lungs/bones: There is a moderate size hiatal hernia. The lung bases are clear. 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 Scoliotic curvature of the spine is note d with meandering course of the abdominal aorta. Abdomen/pelvis: The liver, gallbladder, spleen, pancreas, adrenals, and kidneys appear unremarkable. There is a large hiatal hernia. The proximal GI tract otherwise appears unremarkable. The urinary bladder and reproductive organs are unremarkable with no pelvic free fluid. No acute colo william abnormality identified. 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 Left knee arthroplasty is grossly intact. There is circumferential soft tissue swelling in b oth lower extremities but especially in the right foot. IMPRESSION: 1. Vascular findings as outlined above with bilateral single vessel runoffs. 2. Additional incidental findings as above. Signer Name: Anthony Galindo MD Signed: 11/22/2019 2:32 PM Workstation Name: [id number]
[2019-11-22 14:41] VITALS: BP 128/78
== END 2019-11-22 15:27 | disposition home or self-care (01) ==
LOC: ED 08:52
DX: I73.89 Other specified peripheral vascular diseases (principal); M79.604 Pain in right leg; J45.909 Unspecified asthma, uncomplicated; I10 Essential (primary) hypertension; Z90.49 Acquired absence of other specified parts of digestive tract; Z98.890 Other specified postprocedural states; Z79.899 Other long term (current) drug therapy
CPT/HCPCS: 36415; 75635; 80048; 85025; 85610; 85730; 99284; Q9967